=== PATIENT | female | born 1955 | race Caucasian/White ===

== ENCOUNTER 2019-01-13 08:20 | Day surgery (SDC) | payer BC ==
[~2019-01-13 08:20] MED LIST: EPINEPHrine 1 MG INJ; GENTAMICIN 80 MG INJ; LIDOCAINE 4% (MPF) 5 ML INJ
[2019-01-13] MEDS: CYCLOPENTOLATE/PHENYLEPH 2 ML OPH OPER (09:07)
[2019-01-13] MEDS: DICLOFENAC 0.1% 2.5 ML OPH OPER (09:07)
[2019-01-13] MEDS: SOD CHLORIDE 0.9% 1,000 ML IV (09:07)
[2019-01-13] MEDS: TROPICAMIDE 1% 15 ML OPH OPER (09:07)
[2019-01-13] MEDS: MOXIFLOXACIN 0.5% 3 ML OPH OPER (09:07)
[2019-01-13] MEDS ORDERED: hydrALAzine 20 MG INJ IV (10:00)
[2019-01-13] MEDS ORDERED: ACETAMINOPHEN 325 MG TAB PO (10:00)
[2019-01-13] MEDS ORDERED: DIPHENHYDRAMINE 50 MG INJ IV (10:00)
[2019-01-13] MEDS ORDERED: OXYCODONE/ACETAMINOPHEN (5/325) TAB PO (10:00)
[2019-01-13] MEDS ORDERED: ACETAMINOPHEN 500 MG TAB PO (10:00)
[2019-01-13] MEDS ORDERED: LABETALOL HCL 20MG INJ IV (10:00)
[2019-01-13] MEDS ORDERED: ALBUTEROL 0.083% (NEB) 2.5 MG/3 ML AMP HHN (10:00)
[2019-01-13] MEDS ORDERED: ONDANSETRON 4 MG INJ IV (10:00)
[2019-01-13] MEDS ORDERED: PROPOFOL 20 ML (10:05)
[2019-01-13] MEDS ORDERED: LIDOCAINE 2% (SDV) 5 ML INJ (10:05)
[2019-01-13] MEDS ORDERED: MIDAZOLAM 1 MG/ML 2 ML INJ (10:05)
[2019-01-13] MEDS ORDERED: FENTAnyl 50 MCG/ML VIAL (10:05)
[2019-01-13] MEDS: LIDOCAINE 4% (MPF) 5 ML INJ INJ ×2 (12:12)
[2019-01-13] MEDS: CEFAZOLIN 1 GM INJ (12:13)
[2019-01-13] MEDS: DEXAMETHASONE 4 MG/ML 1 ML INJ INJ (12:13)
[2019-01-13] MEDS: CARBACHOL 0.01% 1.5 ML OPH INJ (12:14)
[2019-01-13] MEDS: FENTAnyl 50 MCG/ML VIAL IV (12:53)
== END 2019-01-13 13:58 | disposition home or self-care (01) ==
LOC: SDS 08:20
DX: H25.11 Age-related nuclear cataract, right eye (principal); I10 Essential (primary) hypertension; E03.9 Hypothyroidism, unspecified; E78.5 Hyperlipidemia, unspecified
CPT/HCPCS: 66984

== ENCOUNTER 2019-04-14 05:54 | Day surgery (SDC) | payer BC ==
[2019-04-14] MEDS ORDERED: LIDOCAINE 4% (MPF) 5 ML INJ (06:43)
[2019-04-14] MEDS: CEFAZOLIN 1 GM INJ (06:43)
[2019-04-14] MEDS ORDERED: TETRACAINE 0.5% 4 ML OPH (06:44)
[2019-04-14] MEDS ORDERED: EPINEPHrine 1 MG INJ (06:44)
[2019-04-14] MEDS ORDERED: GENTAMICIN 80 MG INJ (06:44)
[2019-04-14] MEDS: DEXAMETHASONE 4 MG/ML 1 ML INJ (06:44)
[2019-04-14] MEDS: LIDOCAINE 1% (MPF) 10 ML INJ (06:44)
[2019-04-14] MEDS: DICLOFENAC 0.1% 2.5 ML OPH OPER (06:45)
[2019-04-14] MEDS: MOXIFLOXACIN 0.5% 3 ML OPH OPER (06:45)
[2019-04-14] MEDS: TROPICAMIDE 1% 15 ML OPH OPER (06:45)
[2019-04-14] MEDS ORDERED: NA HYALURONATE/CHONDROITIN 0.5 ML SYG (06:45)
[2019-04-14] MEDS: CYCLOPENTOLATE/PHENYLEPH 2 ML OPH OPER (06:45)
[2019-04-14] MEDS: CARBACHOL 0.01% 1.5 ML OPH INJ (06:45)
[2019-04-14] MEDS: SOD CHLORIDE 0.9% 1,000 ML IV (06:46)
[2019-04-14] MEDS ORDERED: FENTAnyl 50 MCG/ML VIAL ×2 (07:14→08:16)
[2019-04-14] MEDS ORDERED: PROPOFOL 20 ML (07:16)
[2019-04-14] MEDS ORDERED: MIDAZOLAM 1 MG/ML 2 ML INJ (07:49)
[2019-04-14] MEDS ORDERED: ONDANSETRON 4 MG INJ IV (08:00)
[2019-04-14] MEDS ORDERED: LABETALOL HCL 20MG INJ IV (08:00)
[2019-04-14] MEDS ORDERED: FENTAnyl 50 MCG/ML VIAL IV ×3 (08:00)
[2019-04-14] MEDS ORDERED: OXYCODONE/ACETAMINOPHEN (5/325) TAB PO (08:00)
[2019-04-14] MEDS ORDERED: LORAZEPAM 2 MG INJ IV (08:00)
[2019-04-14] MEDS ORDERED: hydrALAzine 20 MG INJ IV (08:00)
[2019-04-14] MEDS ORDERED: MEPERIDINE 25 MG INJ IV (08:00)
[2019-04-14] MEDS: OXYCODONE/ACETAMINOPHEN (5/325) TAB PO (08:51)
[2019-04-14] MEDS: GABAPENTIN 300 MG CAP PO (08:57)
== END 2019-04-14 10:54 | disposition home or self-care (01) ==
LOC: SDS 05:54
DX: H25.12 Age-related nuclear cataract, left eye (principal); I10 Essential (primary) hypertension; E03.9 Hypothyroidism, unspecified; E78.5 Hyperlipidemia, unspecified
CPT/HCPCS: 66984